=== PATIENT | female | born 1955 | race Two or more races ===

== ENCOUNTER 2018-10-25 07:32 | Day surgery (SDC) | payer MEDICARE, BC ==
[2018-10-25] VITALS (10 sets, daily range): BP systolic 120–145; BP diastolic 75–85
[~2018-10-25] VITALS: Ht 157.5 cm; Wt 77.1 kg
[~2018-10-25 07:32] MED LIST: ceFAZolin sod 1 GM in NS 55 ML IVPB ONE
[2018-10-25] MEDS ORDERED: NKM (08:21)
[2018-10-25 08:23] LABS: BASOPHILS % (AUTO) 1.3 % (0.0-2.0); EOSINOPHILS % (AUTO) 1.8 % (0.0-3.0); HEMATOCRIT 43.4 % (37.0-47.0); HEMOGLOBIN 14.2 G/DL (12.0-16.0); LYMPHOCYTES % (AUTO) 33.4 % (20.0-45.0); MEAN CORPUSCULAR VOLUME 90 FL (80-99); MONOCYTES % (AUTO) 8.7 % (1.0-10.0); NEUTROPHILS % (AUTO) 54.8 % (45.0-75.0); PLATELET COUNT 186 K/UL (150-450); RED BLOOD COUNT 4.83 M/UL (4.20-5.40); RED CELL DISTRIBUTION WIDTH 12.7 % (11.6-14.8); WHITE BLOOD COUNT 5.2 K/UL (4.8-10.8)
[2018-10-25 08:36] LABS: INR 0.9 (0.9-1.1)
[2018-10-25 08:49] LABS: ANION GAP 9 mmol/L (5-15); BLOOD UREA NITROGEN 22 mg/dL (7-18); CALCIUM 9.1 MG/DL (8.5-10.1); CARBON DIOXIDE 27 MMOL/L (21-32); CHLORIDE 106 MMOL/L (98-107); POTASSIUM 4.2 MMOL/L (3.5-5.1); SODIUM 141 MMOL/L (136-145)
[2018-10-25] MEDS ORDERED: LR 1000ml 1,000 ML IVLG SCH (09:28)
--- NOTE | 2018-10-25 09:28 | Anethesia Preoperative Eval ---
Anesthesia Pre-op PMH/ROS General Date of Evaluation: October 25, 2018 Anesthesiologist: Surinder ASA Score: ASA 3 Mallampati Score Class I : Soft palate, uvula, fauces, pillars visible Class II: Soft palate, uvula, fauces visible Class III: Soft palate, base of uvula visible Class IV: Only hard plate visible Mallampati Classification: Class II Surgeon: Bebo Diagnosis: Hammertoe Surgical Procedure: hammertoe correction right 3rd digit Anesthesia History: none Family History: no anesthesia problems Allergies: Coded Allergies: PHENTERMINE (Verified Allergy, Severe, "throat closes-up", 10/25/18) SULFAMETHOXAZOLE (Verified Adverse Reaction, Intermediate, diarrhea, ) TRIMETHOPRIM (Verified Adverse Reaction, Intermediate, diarrhea, 10/25/18) Medications: see eMAR Patient NPO?: Yes NPO Date: October 24, 2018 NPO Time: 22:00 Past Medical History Cardiovascular: Denies: HTN, CAD, CT, valve dz, arrhythmia, other Pulmonary: Denies: asthma, COPD, AUTUMN, other Gastrointestinal/Genitourinary: Denies: GERD, CRI, ESRD, other Neurologic/Psychiatric: Denies: dementia, CVA, depression/anxiety, TIA, other Endocrine: Denies: DM, hypothyroidism, steroids, other HEENT: Denies: cataract (L), cataract (R), glaucoma, CHITIMACHA (L), CHITIMACHA (R), other Hematology/Immune: Denies: anemia, DVT, bleeding disorder, other Musculoskeletal/Integumentary: Denies: OA, RA, DJD, DDD, edema, other Other: other - cervical cancer PSxH Narrative: IDALIA, C/s, left fibula ORIF, multiple foot sx, bilateral cataract sx, T&A Anesthesia Pre-op Phys. Exam Physician Exam Last Vital Signs Date Time Temp Pulse Resp B/P (MAP) Pulse Ox O2 Delivery O2 Flow Rate FiO2 10/25/18 08:17 Room Air 10/25/18 07:58 97.5 66 18 138/82 98 Constitutional: NAD Cardiovascular: RRR Respiratory: CTA Airway Exam Mallampati Score: Class II MO: full ROM: full Teeth: intact Anesthesia Pre-op A/P Labs Hematology Test 10/25/18 08:10 White Blood Count 5.2 K/UL (4.8-10.8) Red Blood Count 4.83 M/UL (4.20-5.40) Hemoglobin 14.2 G/DL (12.0-16.0) Hematocrit 43.4 % (37.0-47.0) Mean Corpuscular Volume 90 FL (80-99) Mean Corpuscular Hemoglobin 29.4 PG (27.0-31.0) Mean Corpuscular Hemoglobin Concent 32.7 G/DL (32.0-36.0) Red Cell Distribution Width 12.7 % (11.6-14.8) Platelet Count 186 K/UL (150-450) Mean Platelet Volume 8.5 FL (6.5-10.1) Neutrophils (%) (Auto) 54.8 % (45.0-75.0) Lymphocytes (%) (Auto) 33.4 % (20.0-45.0) Monocytes (%) (Auto) 8.7 % (1.0-10.0) Eosinophils (%) (Auto) 1.8 % (0.0-3.0) Basophils (%) (Auto) 1.3 % (0.0-2.0) Coagulation Test 10/25/18 08:10 Prothrombin Time 10.0 SEC (9.30-11.50) Prothromb Time International Ratio 0.9 (0.9-1.1) Activated Partial Thromboplast Time 29 SEC (23-33) Chemistry Test 10/25/18 08:25 Sodium Level 141 MMOL/L (136-145) Potassium Level 4.2 MMOL/L (3.5-5.1) Chloride Level 106 MMOL/L (98-107) Carbon Dioxide Level 27 MMOL/L (21-32) Anion Gap 9 mmol/L (5-15) Blood Urea Nitrogen 22 mg/dL (7-18) H Creatinine 1.0 MG/DL (0.55-1.30) Estimat Glomerular Filtration Rate 55.7 mL/min (>60) Glucose Level 100 MG/DL (74-106) Calcium Level 9.1 MG/DL (8.5-10.1) Studies Pre-op Studies: EKG - sr Risk Assessment & Plan Assessment: ASA III Plan: MAC Status Change Before Surgery: No Pre-Antibiotics Drug: Ancef 1g Given Within 1 Hr of Incision: Yes Yang-Montana,Alicia MD October 25, 2018 09:28
[2018-10-25] MEDS ORDERED: Ketorolac 30mg Inj IV PRN (09:30)
[2018-10-25] MEDS ORDERED: fentaNYL 100 mcg/2 mL IV PRN (09:30)
[2018-10-25] MEDS ORDERED: LORazepam Inj 2mg/ml 1ml IV PRN (09:30)
[2018-10-25] MEDS ORDERED: Hydromorphone 0.5mg/0.5ml inj IVP PRN (09:30)
[2018-10-25] MEDS ORDERED: Metoclopramide 10mg/2ml Inj IVP PRN (09:30)
[2018-10-25] MEDS ORDERED: DiphenhydrAMINE 50mg/ml Inj IVP PRN (09:30)
[2018-10-25] MEDS ORDERED: Midazolam 2mg/2ml Inj IVP PRN (09:30)
[2018-10-25] MEDS ORDERED: Lidocaine 1% Plain 30 ml INJ ONE (10:36)
[2018-10-25] MEDS ORDERED: Bacitracin 50000 Units Vial ONE (10:36)
[2018-10-25] MEDS ORDERED: Dexamethasone 4mg/ml vial ONE (10:36)
[2018-10-25] MEDS ORDERED: Betadine 10% Oint 30gm TOPIC ONE (10:36)
[2018-10-25] MEDS ORDERED: Bupivacaine w/Epi 0.5% 30ml Vial INJ ONE (10:37)
[2018-10-25] MEDS ORDERED: Bupivacaine 0.25% Inj 30ml INJ ONE (10:48)
[2018-10-25] MEDS ORDERED: Lidocaine 1% MPF 10mg/ml 5ml ONE (10:56)
[2018-10-25] MEDS ORDERED: fentaNYL 100 mcg/2 mL IV ONE (10:56)
[2018-10-25] MEDS ORDERED: Propofol 200mg/20ml IV ONE (10:56)
[2018-10-25] MEDS ORDERED: Midazolam 2mg/2ml Inj ONE (10:56)
[2018-10-25] MEDS ORDERED: DiphenhydrAMINE 50mg/ml Inj ONE (10:58)
[2018-10-25] MEDS ORDERED: Sterile Water Irrig 1000ml IRRIG ONE (11:00)
[2018-10-25] MEDS ORDERED: LR 1000ml ONE (11:00)
--- NOTE | 2018-10-25 11:01 | Pre-Procedure Note/Attestation ---
Pre-Procedure Note/Attestation Complete Prior to Procedure Planned Procedure: right Procedure Narrative: correction of hammer toe 3rd right with arthroplasty and fusion with implant Indications for Procedure Pre-Operative Diagnosis: painful hammer toe 3rd right Attestation I attest that I discussed the nature of the procedure; its benefits; risks and complications; and alternatives (and the risks and benefits of such alternatives ), prior to the procedure, with the patient (or the patient's legal wire rope sales representative). I attest that, if there was a reasonable possibility of needing a blood transfusion, the patient (or the patient's legal wire rope sales representative) was given the [facility] standardized written summary, pursuant to the Melecio Kate Blood Safety Act ([place] Health and Safety Code # 1645, as amended). I attest that I re-evaluated the patient just prior to the surgery and that there has been no change in the patient's H&P, except as documented below: Luis Lagunas DPM October 25, 2018 11:01
[2018-10-25] MEDS ORDERED: NS Irrig 1000ml IRRIG ONE (11:38)
--- NOTE | 2018-10-25 12:16 | Diagnostic Imaging Report ---
Indication: Foot Pain Comparison: None Findings: 3 views of the right foot were obtained. No acute fractures, malalignment, erosions or periostitis are identified. There is osteoarthritis demonstrated with the periarticular spur formation involving portions of the midfoot and hindfoot and forefoot. Soft tissues are unremarkable. Plantar calcaneal spur demonstrated. Impression: No acute findings.
--- NOTE | 2018-10-25 12:17 | Brief Operative Note ---
Immediate Post Operative Note Operative Note Pre-op Diagnosis: painful hammer toe 3rd right Procedure: 3rd toe right arthroplasty and fusion with implant Post-op Diagnosis: same as preop Post-op Diagnosis: same as pre-op Surgeon: luis lagunas Anesthesiologist: dr harris Anesthesia: MAC Specimen: yes Complications: none Condition: stable Fluids: 00 Estimated Blood Loss: none Drains: none Tourniquet time: 48 Implant(s) used?: Yes Luis Lagunas October 25, 2018 12:17
--- NOTE | 2018-10-25 12:23 | Immediate Post-Op Evaluation ---
Immediate Post-Op Evalulation Immediate Post-Op Evalulation Procedure: Hammertoe correction right 3rd toe Date of Evaluation: October 25, 2018 Time of Evaluation: 12:26 IV Fluids: 600 Blood Products: 0 Estimated Blood Loss: 0 Urinary Output: 0 Blood Pressure Systolic: 145 Blood Pressure Diastolic: 85 Pulse Rate: 50 Respiratory Rate: 16 O2 Sat by Pulse Oximetry: 100 Temperature (Fahrenheit): 97.4 Pain Score (1-10): 0 Nausea: No Vomiting: No Complications 0 Patient Status: awake, reacts, patent, none Hydration Status: adequate Drug: Ancef 1g Given Within 1 Hr of Incision: Yes Alicia Valente MD October 25, 2018 12:23
--- NOTE | 2018-10-25 12:24 | 48 Hour Post Anesthesia Eval ---
Post Anesthesia Evaluation Procedure: Hammertoe correction right 3rd toe Date of Evaluation: October 25, 2018 Airway: patent Nausea: No Vomiting: No Pain Intensity: 0 Hydration Status: adequate Cardiopulmonary Status: at baseline Mental Status/LOC: patient returned to baseline Post-Anesthesia Complications: 0 Follow-up care needed: ready to discharge Alicia Valente MD October 25, 2018 12:24
--- NOTE | 2018-10-25 15:16 | Diagnostic Imaging Report ---
Indication: Postop Comparison: None Findings: 3 views of the right foot were obtained. There is a screw fixation traversing the third PIP joint. Soft tissue swelling noted. Plantar calcaneal spur noted. IMPRESSION: Arthrodesis of the third PIP joint
--- NOTE | 2018-10-25 21:00 | Pre-op HX & Phy Repo 2 SIG ---
DATE OF ADMISSION: 10/25/2018 SURGERY SCHEDULED FOR: Today, 10/25/2018. HISTORY OF PRESENT ILLNESS: The patient is a 63-year-old female complaining of the right foot pain and toe deformity for the past 3 years. The pain has been getting progressively worse during the past few months. The patient is mostly complaining of the third toe, which is suffering from the contraction and cortical pain on the PIPJ joints. The patient has tried conservative treatment including padding, offloading, shoe gear, and orthotics without any contribution to decrease of the pain and deformity. She has had previous surgery on this toe. She reports no recent illnesses. No recurrent nausea, vomiting, chills, shortness of breath. The patient is scheduled to have surgery today at [facility]. PAST MEDICAL HISTORY: Not pertinent. MEDICATIONS: None. ALLERGIES: The patient is allergic to Bactrim and . SOCIAL HISTORY: Denied smoking or illicit drugs. FAMILY HISTORY: No pertinent findings. PHYSICAL EXAMINATION: VITAL SIGNS: Temperature is 98.7 degree, pulse 68, respiratory rate 16, and blood pressure is 126/80. DERMATOLOGICAL: There are no open lesions. There is a contraction of the third toe with minimal motion at the PIPJ joints with pain on palpation. VASCULAR: Dorsalis pedis and posterior tibial arteries are palpable. No edema is noticed. MUSCULOSKELETAL: Bony prominence of the head of the proximal phalanx is dorsiflexed and prominent. There is a contraction on the digit. Full muscle strength noticed. No swelling or edema is noticed. ASSESSMENT AND PLAN: This is a 63-year-old female with right foot pain secondary to hammertoe, third toe. The patient has tried conservative measures; however, she still has significant pain, recommended surgery as the next extensive management. The risks, benefits, and alternatives were discussed with the patient in detail who understands and would like to proceed with surgical intervention. All of the patient's questions have been answered and the patient is scheduled to have surgery today at [facility]. Luis Lagunas D.P.M. DR: KRISTI JOB#: [id number] CC:
--- NOTE | 2018-10-26 01:15 | Operative Note - Dictated ---
DATE OF OPERATION: 10/25/2018 NOTE: "POOR AUDIO QUALITY" SURGEON: Luis Lagunas DPM. ANESTHESIOLOGIST: Dr. Cadena. PREOPERATIVE DIAGNOSES: 1. Hammertoe, third, right foot. 2. Contracture, PIPJ joint, third toe. POSTOPERATIVE DIAGNOSES: 1. Hammertoe, third, right foot. 2. Contracture, PIPJ joint, third toe. TITLE OF OPERATION: Correction of the right third hammertoe with arthroplasty and fusion using a Vilex implant. HEMOSTASIS: Pneumatic ankle tourniquet. ESTIMATED BLOOD LOSS: Negligible. MATERIALS USED: 3-0 Vicryl, 4-0 Vicryl, 5-0 nylon, and Vilex small toe implant 22 mm was used. INJECTABLE: A 10 mL of 0.25% Marcaine and 1% lidocaine in the ratio of 1:1 was injected in the third toe on the right in a Oquendo block fashion. Postoperatively, 2 mL of dexamethasone with 2 mL of Marcaine was injected for postoperative pain management. SPECIMEN: Bone resected from the proximal head of the phalanx and the base of the middle phalanx was sent for pathology for study. DRESSING: The incision was covered with Xeroform, Betadine ointment, 4 x 4, James. COMPLICATIONS: None. CONDITION: Stable. DESCRIPTION OF PROCEDURE IN DETAIL: The patient was brought to the operating room and assisted onto the operating table in the supine position. She was well padded to avoid any excessive pressure. The patient was then given 1 g of Ancef before start of surgery and timeout was performed. A well-padded cotton padding pneumatic ankle tourniquet was then inflated and positioned on the right ankle. Local anesthesia block was administered with 10 mL of 1:1 mixture of 0.25% Marcaine and lidocaine. The foot was then scrubbed, prepared in the usual aseptic manner. Attention was then directed to the right foot where a pneumatic ankle tourniquet was then inflated to 250 mmHg after exsanguination with Esmarch. At this time, the preplanned incision was made on the right foot over the PIPJ joint of the third toe of approximately 3 cm length centering on the PIPJ joint. The incision was deepened through subcutaneous tissue. All vital structures were retracted and inspected. All bleeders were cauterized and retracted. At this time, the capsule was exposed. A linear capsulotomy was then performed to gain access to the capsule. Multiple osteophyte formation and degenerative changes were noticed. After the capsule was reflected, the head of the proximal phalanx and the base of the middle phalanx were exposed. Approximately 3 mm of the head of the proximal phalanx and 2 mm of the base of the middle phalanx were then osteotomized and passed from the field. At this time, attention was directed to the center of the proximal phalanx. A premeasured K-wire was inserted. A predrill was done to create for the implant. The K-wire was then retracted. At this time, the K-wire was inserted into the base of the middle phalanx where a broach was then used to expand the medullary canal to seat the head of the implant. At this time, a right-sided implant was chosen. The implant was driven in terms of a compression screw into the proximal phalanx. The head of the implant was then inserted into the base of the middle phalanx. The toe was compressed and immediate compression was noticed with no gap between the bones. At this time, a lavage was attempted with saline. The capsule was closed using 2-0 Vicryl, subcutaneous tissue was closed using 3-0 Vicryl, and subsequently the skin was closed using 5-0 nylon. An injection of 2 mL of dexamethasone and 2 mL of Marcaine was injected in the area for postoperative pain management. The toe was noticed to be in great rectus position and aligned with the foot. At this time, the incision was dressed using Xeroform, Betadine ointment, 4 x 4, James, and Coban. After the incision was dressed, the ankle tourniquet was then deflated and immediate hyperemia was noted to toes 1 through 5. The patient was then transferred from the operating room to recovery room with all vital signs stable. She will be given crutches and postoperative shoe. She was instructed before the surgery with clear instruction for after the surgery and followup appointment with Dr. Lagunas. There were no complications to the surgery. The patient will be discharged home once cleared by the anesthesiologist. Luis Lagunas D.P.M. DR: LARA JOB#: [id number] CC:
--- NOTE | 2018-10-30 20:28 | Cardiology Report ---
APPROVED REPORT EKG Measurement Heart [id number] Sinus bradycardia Otherwise normal ECG
== END 2018-10-25 14:40 | disposition home or self-care (01) ==
LOC: SUR 07:32
DX: M20.41 Other hammer toe(s) (acquired), right foot (principal); M24.574 Contracture, right foot; Z79.899 Other long term (current) drug therapy; Z88.8 Allergy status to other drugs, medicaments and biological substances
CPT/HCPCS: 28285; 36415; 73630; 80048; 85025; 85610; 85730; 93005; J0690; J1100; J1200; J2001; J2250; J2704; J3010; J3490; 94003; 94150